=== PATIENT | male | born 1980 | race Caucasian/White ===

== ENCOUNTER 2017-08-09 11:54 | Observation (INO) ==
[2017-08-09 12:11] VITALS: BMI 45.6
--- NOTE | 2017-08-09 12:45 | History & Physical Report ---
History of Present Illness Date: 08/09/17 Chief complaint: DVT HPI: Patient is a 36 yo who had R achilles tendon surgery on 05/[address] Jane for a ruptured achilles tendon. Patient has been attending PT 2x a weekand doing exercises at home. He has noted increased swelling for the past 1.5 weeks and attributed it to "overdoing" it. His swelling worsened 3 days ago and he noted redness and mild discomfort. WHen he was at PT this am, they noted his swelling and got him in with KIM Modi, who ordered a venous doppler which showed extensive clot into the popliteal vein. His PCP's office was apparently contacted and indicated they didn't feel comfortable treating this on an OP visit, thus hospitalist service was contacted and pt was admitted for observation. Review of Systems All systems PM: 10-point ROS was reviewed, no additional remarkable complaints except (mild discomfort in RLL, swelling and redness RLL, anxiety r/t dx) Past Medical History Medical History Updates: seasonal allergies Surgical History: Right Achilles tendon repair. 05/31/17. vasectomy Family History: Family History (Last Reviewed 08/09/17 @ 10:31 by Emiliana Lerner [facility]) Paternal Grandfather COPD (chronic obstructive pulmonary disease) High blood pressure Maternal Grandfather Diabetes Heart attack High blood pressure Liver disease Family History Updates: Mom - healthy. Dad - cirrhosis Family History: As Above - Social History Smoking status: Light tobacco smoker (social) Substance use type: does not use Alcohol intake frequency: a few times a week (bourbon - 3-4 drinks) Household members: other (girlfriend) Current occupational status: employed ([employer]) Does patient use chewing tobacco?: Yes (occasional) Current residence: Apartment/Private Home Social history: Dr Martinez - PCP Dr. Jane - ortho Medications Home Medications Medication Instructions Recorded Confirmed Type Ibuprofen 800 mg PO Q8H PRN 05/14/17 08/09/17 History Multivitamin [One Daily 1 tab PO DAILY 05/14/17 08/09/17 History Multivitamin] [place]-3/Dha/Epa/Fish Oil [Fish Oil 1,000 mg PO DAILY 05/14/17 08/09/17 History 1,000 mg Softgel] Allergies Allergy/AdvReac Type Severity Reaction Status Date / Time No Known Allergies Allergy Verified 08/09/17 10:31 Exam Height/Weight/BMI: Height 1.7 m Weight 132 kg Body Mass Index 45.6 - Constitutional Present: no acute distress, well nourished, well developed - Routine HEENT Exam Head: Present: normocephalic, atraumatic Eye: Present: EOMI, PERRL ENT: Present: mucous membranes moist, oropharynx clear - Routine Neck Exam Absent: lymphadenopathy - Routine Respiratory Exam Present: CTA bilaterally. Absent: wheezes - Routine Cardiovascular Exam Present: RRR, no murmur - Routine Abdominal Exam Present: soft, normoactive bowel sounds. Absent: tenderness, distended - Routine Extremities Exam Present: edema (RLE to above the R knee. Eythema noted to distal LE posteriorly /medially. Pulses are intact.), no edema (LLE), normal capillary refill - Routine Skin Exam Present: dry, warm - Routine Neurological Exam Present: alert, oriented X3, CN II-XII intact - Routine Psychiatric Exam Present: normal affect, cooperative Results - Labs CBC & Chem 7: 08/09/17 13:52 08/09/17 13:52 - Imaging and Cardiology Venous US Additional comments: Findings: Right common femoral vein is patent and compressible. There is occlusive deep vein thrombosis from the superficial femoral vein proximally through the popliteal vein. Specifically, serial graded compression was performed from the inguinal ligament to the popliteal bifurcation, on the right thigh, demonstrating appropriate noncompressibility of the deep venous system. In addition, color and pulsed Doppler demonstrate lack of spontaneous flow, variation with respiration, and lack of augmentation with calf compression. At the ankle, normal flow is identified in the posterior tibial veins; these vessels are also normal in caliber. Impression: Extensive DVT. Assessment and Plan Assessment and Plan: Assessment Extensive DVT of RLE - provoked given his recent surgery S/p R achilles tendon repair by Dr. Jane 05/31/17 Tobacco use Plan Admit, OBS INR, PT, aPTT, CBC, CMP Eliquis 10mg BID for anticoagulation Consult respiratory for tobacco cessation. Full Code Care to return to Dr. Martinez on dismissal - Physician Narrative Narrative: Date: 08/09/17 Time: 1742 S: Pt doing well other than right leg swollen and edematous. Pt denies any n/v/d , f/c, cp or sob. Pt reports some hx of easy bruising but no hx of excessive bleeding during surgery or procedures. O: Gen: AAOx3 Cards: RRR without murmur A/p: Will start anti-coagulation, discussed risks of bleeding. Will check INR/PT, PTT , platelet function tests, will monitor tonight and plan for discharge tomorrow. Hospital Course Summary Disclaimer: The visit summary below is not to be considered part of the above Progress Note.
[2017-08-09] MEDS: APIXABAN 5 MG TABLET PO SCH ×2 (14:08→20:21)
[2017-08-10 00:19] VITALS: O2SAT 95
[2017-08-10 07:22] VITALS: BP 122/73; PULSE 65; RESP 18; TEMP 96.6
[2017-08-10] MEDS: APIXABAN 5 MG TABLET PO SCH (08:26)
--- NOTE | 2017-08-10 10:12 | Discharge Summary ---
Discharge Information Date of admission: 08/09/17 11:56 Anticipated date of discharge: 08/10/17 Attending Physician: Iva Peña MD Primary care physician: Bernabe Martinez II, MD Consults: none Extensive DVT of RLE - provoked given his recent surgery S/p R achilles tendon repair by Dr. Jane 05/31/17 Tobacco use - Laboratory Labs: Laboratory Tests 08/09/17 08/09/17 13:52 18:21 WBC 7.5 RBC 4.55 Hgb 13.8 Hct 41.3 MCV 90.8 MCH 30.3 MCHC 33.4 RDW Std Deviation 42.1 Plt Count 212 Plt Funct P2Y12 Units 231 Laboratory Tests 08/09/17 08/09/17 08/09/17 13:41 13:52 18:21 INR 1.0 APTT 29.2 Plt Funct P2Y12 Units 231 Laboratory Tests 08/09/17 13:52 Sodium 142 Potassium 3.9 Chloride 105 Carbon Dioxide 26 Anion Gap 11 BUN 15.0 Creatinine 1.0 Glucose 92 Calcium 9.1 Total Bilirubin 0.60 AST 42 ALT 52 H Alkaline Phosphatase 60 Total Protein 7.4 Globulin 3.3 Albumin/Globulin Ratio 1.2 - Radiology Radiology: RLE venous doppler Findings: Right common femoral vein is patent and compressible. There is occlusive deep vein thrombosis from the superficial femoral vein proximally through the popliteal vein. Specifically, serial graded compression was performed from the inguinal ligament to the popliteal bifurcation, on the right thigh, demonstrating appropriate noncompressibility of the deep venous system. In addition, color and pulsed Doppler demonstrate lack of spontaneous flow, variation with respiration, and lack of augmentation with calf compression. At the ankle, normal flow is identified in the posterior tibial veins; these vessels are also normal in caliber. Impression: Extensive DVT. History of Present Illness HPI: Patient is a 36 yo who had R achilles tendon surgery on 05/[address] Jane for a ruptured achilles tendon. Patient has been attending PT 2x a weekand doing exercises at home. He has noted increased swelling for the past 1.5 weeks and attributed it to "overdoing" it. His swelling worsened 3 days ago and he noted redness and mild discomfort. WHen he was at PT this am, they noted his swelling and got him in with KIM Modi, who ordered a venous doppler which showed extensive clot into the popliteal vein. His PCP's office was apparently contacted and indicated they didn't feel comfortable treating this on an OP visit, thus hospitalist service was contacted and pt was admitted for observation. Objective Vital signs: Temperature 96.6 F L 08/10/17 07:22 Pulse Rate 65 08/10/17 07:22 Respiratory Rate 18 08/10/17 07:22 Blood Pressure 122/73 08/10/17 07:22 Pulse Oximetry 95 08/10/17 07:22 Height/Weight/BMI: Height 1.7 m Weight 129.8 kg Body Mass Index 45.6 - Constitutional Present: no acute distress, well nourished, well developed - Routine HEENT Exam Head: Present: normocephalic, atraumatic - Routine Respiratory Exam Present: CTA bilaterally. Absent: wheezes - Routine Cardiovascular Exam Present: RRR, no murmur - Routine Abdominal Exam Present: soft, non distended, non tender - Routine Extremities Exam Present: edema (swelling to lower R extremity to knee - has improved. Erythema to distal lower leg persists.), normal capillary refill - Routine Skin Exam Present: dry, warm - Routine Neurological Exam Present: alert, oriented X3 - Routine Lymphatic Exam Lymphatic: Absent: adenopathy - Routine Psychiatric Exam Present: normal affect, cooperative Hospital Course This is a general summary of the patient's hospital course. For more details refer to the complete medical record. Hospital course: Patient presented to ortho office at the recommendation of the physical therapist yesterday. He was found to have an extensive DVT in the RLE likely provoked by previous achilles tendon repair surgery. He was started on Eliquis 10mg BID and has had 3 doses at time of discharge. He will be continued on 10mg BID through August 15 and then decrease to 5mg BID. He will continue on this for at least 3 mos. He can discuss length of treatment with Dr. Martinez at his f -u appt in 3 wks. His labs were normal. His stay was uneventful. Time spent with patient: discharge greater than 30 minutes Resuscitation Status: Full Code Discharge Plan - Discharge Disposition Discharge Date: 08/10/17 Disposition: 01 Discharged Home, Self-Care *Condition: Stable Reason For Visit (Visit label in EMR): DVT - Discharge Medications *Discharge Medications: New Apixaban [Eliquis] 10 mg PO BID #50 tab Continue Multivitamin [One Daily Multivitamin] 1 tab PO DAILY Ibuprofen 800 mg PO Q8H PRN PRN Reason: Pain [place]-3/Dha/Epa/Fish Oil [Fish Oil 1,000 mg Softgel] 1,000 mg PO DAILY - Discharge Packet/Instructions *Diet: Regular *Activity: As tolerated - per ortho restrictions *Pain Management/Treatment: Per ortho *Wound Care: n/a Additional Instructions: Take 10mg of Eliquis 2x a day through August 15, then decrease to 5mg 2x a day. Discuss with Dr. Martinez how long you need to continue the Eliquis. You will be on it for a minimum of 3 mos. *Expected Signs/Symptoms: Continued improvement in pain and swelling *Notify Physician if: you develop increased swelling or pain *During Business Hours Contact: Dr. Martinez's office *After Business Hours Contact: [facility] -- follow after hours instructions *Pending Lab/Results: No Pending Lab - Referrals/Follow Up *Referrals/Follow Up: Bernabe Martinez II, MD [Primary Care Provider] - (keep appt as already scheduled in August.) - Patient Handouts Patient Handouts: Deep Vein Thrombosis (DC) - Dismissal Complete Discharge Instructions are:: Complete Physician Narrative - Narrative Attestation Narrative: Date: 08/10/17 Time: 1605 Pt was admitted for DVT after achilles tender rupture and surgery about 2 months ago. Pt was started on monotherapy with Eliquis and did well. Risks and benefits of anti-coagulation was discussed with pt and he agreed to treatment. Length of treatment will need to be discussed as well as need for serial US to monitor DVT with pcp. Pt did well on day of discharge and had no acute complaints. Heart was RRR without murmurs and right leg was stable with swelling and erythema. Pt will follow up with pcp.
[2017-08-16] MEDS ORDERED: APIXABAN 5 MG TABLET PO SCH (09:00)
== END 2017-08-10 10:40 | disposition home or self-care (01) ==
LOC: MED
PROVIDERS: ADMIT Internal Medicine; ATTEND Internal Medicine